=== PATIENT | female | born 1990 | race Caucasian/White ===

== ENCOUNTER → 2021-03-21 08:13 | Outpatient (CLI) | payer OTHER, SELFPAY ==
[2021-03-21 18:40] LABS: Add Manual Diff / Slide Review NO; Basophils Absolute Auto 100 /uL (0-100); Eosinophils Absolute Auto 200 /uL (0-450); Eosinophils Percent Auto 2.1 % (2-4); Hematocrit 42.4 % (36-46); Hemoglobin 14.2 g/dL (12.0-16.0); Lymphocytes Absolute Auto 2100 /uL (1100-4500); Lymphocytes Percent Auto 25.7 % (25-40); Mean Corpuscular HGB Conc 33.5 % (30-36); Mean Corpuscular Hemoglobin 30.8 PG (26-34); Mean Corpuscular Volume 91.9 fL (80-100); Monocytes Absolute Auto 600 /uL (0-900); Neutrophils Absolute Auto 5200 /uL (1500-7000); Neutrophils Percent Auto 64.2 % (50-75); Platelet Count 282 X10^3/uL (150-400); Red Blood Cell Count 4.62 X10^6/uL (4.0-5.2); Red Cell Distribution Width 13.8 % (11.6-14.8); White Blood Cell Count 8.1 X10^3/uL (4.5-11.0)
[2021-03-21 18:58] LABS: Alanine Aminotransferase 22 IU/L (<35); Albumin Globulin Ratio 1.3 (1.0-2.8); Alkaline Phosphatase 60 U/L (38-126); Aspartate Aminotransferase 21 IU/L (14-36); BUN Creatinine Ratio 21.8 (6-22); Bilirubin Total 0.9 mg/dL (0.2-1.3); Blood Urea Nitrogen 17 mg/dL (7-17); Calcium 9.4 mg/dL (8.4-10.2); Carbon Dioxide 25 mmol/L (22-32); Chloride 104 mmol/L (98-107); Cholesterol 274 mg/dL (140-199); Estimated Glomerular Filt Rate > 60.0 mL/min (>60); Glucose 98 mg/dL (70-100); HDL Cholesterol 39 mg/dL (40-60); HEMOLYSIS < 15 (0-50); Iron 92 ug/dL (37-170); LDL Cholesterol Calculated 211 mg/dL (<100); Potassium 4.5 mmol/L (3.4-5.1); Sodium 138 mmol/L (137-145); Triglycerides 121 mg/dL (35-150)
[2021-03-21 19:03] LABS: High Sensitivity CRP - Cardiac > 15.0 mg/L (1.0-3.0)
[2021-03-21 19:04] LABS: Hemoglobin A1C% w Est Avg Glu 5.3 % (4.0-6.0)
[2021-03-21 19:09] LABS: Percent Iron Saturation 29 % (15-50); Total Iron Binding Capacity 319 ug/dL (265-497)
[2021-03-21 19:12] LABS: C-Reactive Protein Quant 1.7 mg/dL (<1.0)
[2021-03-21 19:15] LABS: Free T3, Triiodothyronine Free 4.11 pg/mL (2.77-5.27); Free T4, Direct Thyroxine 1.05 ng/dL (0.78-2.19)
[2021-03-21 19:17] LABS: Erythrocyte Sedimentation Rate 24 MM/HR (0-20)
[2021-03-21 19:28] LABS: Cortisol AM (Before 10AM) 15.6 ug/dL (4.46-22.7)
[2021-03-21 19:29] LABS: Thyroid Stimulating Hormone 2.05 uIU/mL (0.47-4.68)
[2021-03-21 19:32] LABS: Ferritin 36 ng/mL (6-137)
[2021-03-21 19:47] LABS: Vitamin B12 334 pg/mL (239-931)
== END ==
PROVIDERS: PCP Family Medicine; Visit Provider Naturopath
DX: G47.00 Insomnia, unspecified (principal); G47.30 Sleep apnea, unspecified; I10 Essential (primary) hypertension; R45.89 Other symptoms and signs involving emotional state; R53.83 Other fatigue; R70.0 Elevated erythrocyte sedimentation rate; R79.82 Elevated C-reactive protein (CRP)
CPT/HCPCS: 80053; 80061; 82533; 82607; 82728; 83036; 83540; 83550; 84439; 84443; 84481; 85025; 85651; 86140

== ENCOUNTER → 2021-06-18 10:25 | Outpatient (CLI) | payer OTHER, SELFPAY | PROVIDERS: PCP Family Medicine; Referring Provider Naturopath; Visit Provider Naturopath | DX: Z01.810 Encounter for preprocedural cardiovascular examination (principal) | CPT/HCPCS: 93005 ==

== ENCOUNTER → 2021-08-28 09:00 | Outpatient (CLI) | payer OTHER, SELFPAY ==
[2021-08-28 11:12] LABS: COVID19 -Nasal RAPID Negative (Negative)
== END ==
PROVIDERS: PCP Family Medicine; Visit Provider Family Medicine Sleep Medicine
DX: Z20.822 Contact with and (suspected) exposure to COVID-19 (principal)
CPT/HCPCS: 87635; C9803

== ENCOUNTER 2021-08-29 08:35 | Day surgery (SDC) | payer OTHER, SELFPAY ==
[2021-08-27 08:12] VITALS: BMI 37.2
[2021-08-29] VITALS (7 sets, daily range): BP systolic 117–138; BP diastolic 76–83; PULSE 60–81; RESP 10–16; TEMP 36.5–37.1; O2SAT 94–99; BMI 38.0
--- NOTE | 2021-08-29 08:45 | PM.PREOP ---
Pre-operative Note Interval Note History & Physical reviewed/Exam performed by Physician: Yes Changes to H&P: No
--- NOTE | 2021-08-29 08:46 | PM.HP.1 ---
History of Present Illness History of Present Illness Date Patient Seen: 08/29/21 Time Patient Seen: 08:46 Chief complaint: RAYMUNDO Narrative: 30-year-old female with chronic nasal obstruction, last seen in clinic 05/22/2021, presents for septoplasty and turbinate reduction, possible internal nasal valve release. No interval health changes, septum 2 to 3+ to the right in clinic, borderline to mild MAGI. Medical clearance 05/23/2021 reviewed. She lives on [facility]. Patient History Medical History Anxiety Depression Deviated septum GERD (gastroesophageal reflux disease) Nasal obstruction PTSD (post-traumatic stress disorder) Shoulder pain Sleep apnea (2018) Surgical History History of tympanoplasty [place] teeth removed Family & Social History Social History: household members spouse Tobacco & Substance use: Tobacco type cigarettes Smoking Status Former smoker alcohol intake current Meds Home Medications and Allergies Home Medications Medication Instructions Recorded Confirmed Type rauwolfia tincture BUCCAL 12/14/20 04/09/21 History sertraline 100 mg tablet 100 mg PO DAILY 12/14/20 08/27/21 History bupropion HCl 150 mg 24 hr tablet, 150 mg PO QAM 04/09/21 08/27/21 History extended release Allergies Allergy/AdvReac Type Severity Reaction Status Date / Time No Known Drug Allergies Allergy Unverified 12/14/20 11:38 Review of Systems Review of Systems Narrative: Negative except as listed in the HPI Exam Narrative Exam Narrative: Well-developed well-nourished female in no acute distress. Right septal deviation 2 to 3+, heart regular rate and rhythm without murmur, lungs clear to auscultation bilaterally. Assessment & Plan Assessment & Plan narrative: Assessment: 1. Nasal airway obstruction 2. Septal deviation 3. Inferior turbinate hypertrophy 4. Internal nasal valve restriction 5. MAGI Plan: Following discussion of the material risks benefits complications and alternatives, the patient elected to proceed. Time Spent With Patient Critical Care time: I spent a total of [] minutes of critical care time on this patient's care today; this time is exclusive of procedural time.
--- NOTE | 2021-08-29 08:48 | PM.OP.1 ---
Operative Date/Time/Diagnoses Date of procedure: 08/29/21 Time of procedure: 12:22 Pre-op diagnosis: Nasal airway obstruction, septal deviation, inferior turbinate hypertrophy, internal nasal valve restriction, MAGI Post-op diagnosis: same Procedure & Clinicians Procedure: 1. Septoplasty 2. Inferior turbinate reduction via intramural cautery Same procedure as scheduled: Yes Indications: 30-year-old female with above diagnoses incompletely managed with medical therapy presents for the above procedures. Following discussion of the material risks benefits complications and alternatives, she elected to proceed. Surgeon: Arsalan Dumont Anesthesia Type: General and Local Operative Notes Findings: 2 to 3+ right septal deviation, including large thick bony spur posteriorly, left greater than right inferior turbinate hypertrophy. Bilat INV's patent at completion, no need for valve release. Estimated Blood Loss (mL): 50 Procedure in detail: Following identification and confirmation of consent as well as preoperative Afrin nasal spray, the patient was brought to the operating room suite and placed in the supine position. General endotracheal anesthesia was administered. I infiltrated the septum widely bilaterally with 1% lidocaine 1 100,000 epinephrine followed by temporary packing with cotton with Afrin and 4% lidocaine. Following sterile prep and drape, the packing was removed and I performed a right ana-transfixion incision, elevated the right mucoperichondrial and mucoperiosteal flap. I disarticulated near the bony/cartilaginous junction and elevated the left mucoperiosteal flap. Deviated portions of the perpendicular plate of the ethmoid and vomer were resected, including the large RIGHT posterior thick bony spur. The residual quadrilateral cartilage was further straightened by trimming it inferiorly as well as reducing the maxillary crest. A 2 mm strip of cartilage paralleling the residual 1 cm dorsal and caudal strut was resected to further straighten the quadrilateral cartilage. The hemitransfixion incision was closed with interrupted 5 0 chromic followed by a running 4 0 plain gut mattress suture to reapproximate the septal flaps. At case completion, 20/1000th of an inch silastic splints were placed bilaterally, sutured anteriorly with a single 4 0 nylon. The INV's were patent at completion. The head of each inferior turbinate had been previously infiltrated with additional local anesthetic and a 25 gauge spinal needle was used to impale the length of the turbinate, with cautery on a setting of 15 activated on slow withdrawal. The turbinates were then outfractured. The procedure completed, sponge and needle counts were correct and the patient was extubated in the operating room and taken to recovery room in stable condition without known complication. Postoperative care: Nasal saline every hour while awake, Vaseline or Polysporin to the nostrils at all times, begin irrigations t.i.d. beginning pod 1. Humidifier at the bedside blowing on the face. Tylenol alternating with Advil for pain control, oxycodone if necessary for breakthrough pain. Complications: none Post-operative Condition: stable Disposition: same day surgery Plan for aftercare: Nasal saline every hour while awake, begin irrigations t.i.d. tomorrow if desired. Polysporin to the nostrils at all times, Tylenol alternating with Advil for pain control, oxycodone for breakthrough pain. Elevate head of bed, no nose blowing, no straining for 2 weeks. Follow-up in 1 week for nasal splint removal. Ice directly under the nose for 24-48 hours as tolerated.
[2021-08-29] MEDS: LACTATED RINGERS 1,000 ML 42 ML IV ×2 (09:45→12:19)
--- NOTE | 2021-08-29 10:35 | P.HP_ITS ---
History of Present Illness History of Present Illness Date Patient Seen: 08/29/21 Time Patient Seen: 10:35 Chief complaint: RAYMUNDO Narrative: 30-year-old female with chronic nasal obstruction, last seen in clinic 05/22/2021, presents for septoplasty and turbinate reduction, possible internal nasal valve release. No interval health changes, septum 2 to 3+ to the right in clinic, borderline to mild MAGI. Medical clearance 05/23/2021 reviewed. She lives on [facility]. Patient History Medical History Anxiety Depression Deviated septum GERD (gastroesophageal reflux disease) Nasal obstruction PTSD (post-traumatic stress disorder) Shoulder pain Sleep apnea (2018) Surgical History History of tympanoplasty [place] teeth removed Family & Social History Social History: household members spouse Tobacco & Substance use: Tobacco type cigarettes Smoking Status Former smoker alcohol intake current alcohol intake frequency a few times a month Substance Use Type marijuana Meds Home Medications and Allergies Home Medications Medication Instructions Recorded Confirmed Type rauwolfia tincture BUCCAL 12/14/20 04/09/21 History sertraline 100 mg tablet 100 mg PO DAILY 12/14/20 08/29/21 History bupropion HCl 150 mg 24 hr tablet, 150 mg PO QAM 04/09/21 08/29/21 History extended release bupropion HCl 150 mg 24 hr tablet, mg PO 08/29/21 History extended release Allergies Allergy/AdvReac Type Severity Reaction Status Date / Time No Known Drug Allergies Allergy Verified 08/29/21 09:26 Review of Systems Review of Systems Narrative: Negative except as listed in the HPI Exam Vital Signs (past 8 hours): - 08/29/21 09:33 Temperature 98.6 F Pulse Rate 77 Respiratory Rate 16 Blood Pressure 121/77 Pulse Oximetry 99 Oxygen Delivery Method Room Air Narrative Exam Narrative: Well-developed well-nourished female in no acute distress. Right septal deviation 2 to 3+, heart regular rate and rhythm without murmur, lungs clear to auscultation bilaterally Assessment & Plan Assessment & Plan narrative: Assessment: Nasal airway obstruction, septal deviation, inferior turbinate hypertrophy, MAGI, possible right internal nasal valve restriction Plan: Following discussion of the tear risks benefits complications alternatives, patient elected to proceed with septoplasty and inferior turbinate reduction, possible internal nasal valve reduction. Time Spent With Patient Critical Care time: I spent a total of [] minutes of critical care time on this patient's care today; this time is exclusive of procedural time.
--- NOTE | 2021-08-29 10:35 | PM.PREOP ---
Pre-operative Note Interval Note History & Physical reviewed/Exam performed by Physician: Yes Changes to H&P: No
--- NOTE | 2021-08-29 10:50 | SUR.OPER ---
Supine on padded OR bed, head on gel donut, left arm tucked, right arm secured on padded arm boards at <90 degrees abduction, legs uncrossed, safety belt at thigh, tape over blanket over lower legs.
[2021-08-29] MEDS: BACITRACIN 28 GM OINT 1 APPLIC TOP (11:32)
[2021-08-29] MEDS: LIDOCAINE 1% W/EPI 20 ML INJ (11:33)
[2021-08-29] MEDS: OXYMETAZOLINE NASAL SPRAY 15 ML 2 SPRAYS NASAL (11:34)
[2021-08-29] MEDS: LIDOCAINE 4% SOLN 50 ML 20 ML TOP (11:36)
[2021-08-29] MEDS: ONDANSETRON 4 MG/2 ML INJ IV (12:36)
[2021-08-29] MEDS: fentaNYL 100 MCG/2 ML INJ IV (12:37)
[2021-08-29] MEDS: OXYCODONE IR 5 MG TABLET PO (12:47)
== END 2021-08-29 13:09 | disposition home or self-care (01) ==
PROVIDERS: Referring Provider Otolaryngology; Visit Provider Otolaryngology
PROC: (CPT 30520; principal; 2021-08-29 10:30)
DX: J34.2 Deviated nasal septum (principal); J34.89 Other specified disorders of nose and nasal sinuses; J34.3 Hypertrophy of nasal turbinates; J98.8 Other specified respiratory disorders; G47.33 Obstructive sleep apnea (adult) (pediatric); K21.9 Gastro-esophageal reflux disease without esophagitis; F32.A Depression, unspecified; F41.9 Anxiety disorder, unspecified
CPT/HCPCS: 30520; 30802; 81025; J1100; J2405; J2704; J3010